=== PATIENT | female | born 1995 | race African-American/Black ===

== ENCOUNTER 2018-06-03 19:03 | Emergency (ER) | payer SELFPAY ==
[~2018-06-03] VITALS: Ht 162.6 cm; Wt 70.8 kg
[2018-06-03 19:13] VITALS: Ht 162.6 cm; Wt 70.8 kg
[2018-06-03 21:24] VITALS: BP 118/74
== END 2018-06-03 21:24 | disposition home or self-care (01) ==
LOC: ED 19:03
DX: S00.31XA Abrasion of nose, initial encounter (principal); S01.511A Laceration without foreign body of lip, initial encounter; K03.81 Cracked tooth; W01.0XXA Fall on same level from slipping, tripping and stumbling without subsequent striking against object, initial encounter; Y93.89 Activity, other specified; Y92.89 Other specified places as the place of occurrence of the external cause; Y99.8 Other external cause status
CPT/HCPCS: J1885; J2001